=== PATIENT | female | born 1940 | race Caucasian/White ===

== ENCOUNTER 2016-11-15 15:37 | Observation (INO) | payer MEDICARE, OTHER ==
--- NOTE | ~2016-11-15 | DS ---
Discharge Summary [facility] [address] [place]. [address] NAME: BIJU DE ANDA : 44 STATUS : DIS Holly PAT#: [id number] AGE: 76 ADM/REG DATE : 11/15/16 MR#: [id number] REPORT SERV DATE: 11/17/16 DICTATED BY: DATE: REPORT STATUS : Draft TRANSCRIBED BY: MODL DATE: 11/16/16 ADMISSION DATE: 11/15/2016 DISCHARGE DATE: 11/16/2016 DISCHARGE DIAGNOSES: 1. Acute kidney injury. 2. Failure to thrive. 3. Advanced dementia. 4. Metabolic encephalopathy. 5. Gastroesophageal reflux disease. 6. Rheumatoid arthritis. 7. Decubitus ulcers. DISCHARGE MEDICATIONS: Include aspirin 81 mg p.o., daily, folic acid 1 mg p.o. daily, [place] one tab p.o. q.12 hours, Lopressor 12.5 mg b.i.d. p.o., nystatin topical to affected area b.i.d., Prilosec 20 mg p.o. every morning, pravastatin 80 mg p.o. at bedtime, Seroquel 25 mg p.o. at bedtime, Zoloft 50 mg p.o. every morning, prednisone 5 mg p.o. b.i.d., Artificial Tears one drop ophthalmic daily p.r.n. for dry eyes, Tylenol 650 mg p.o. q.4 hours p.r.n. for temp greater than 101, Zofran 4 mg p.o. sublingual q.4 hours p.r.n. for nausea. IMAGING: Includes a portable chest x-ray. This demonstrated mild pulmonary venous hypertension as well as mild interstitial edema. CONSULTING PHYSICIANS: None. HOSPITAL COURSE/PROBLEM LIST: 1. Acute kidney injury. The patient was brought into the emergency department yesterday and was found have a creatinine of 2.66. She has not been eating or drinking anything for the past 7 days. The plan was to measures observation over night. Hydrate her with IV fluids to see if her mental status improved and her creatinine level came down. It is down to 1.74 today. 2. Advanced dementia, failure to thrive is probably related to this advanced dementia. The patient again is not eating or drinking anything for the past 7 days. This has caused acute kidney injury. After discussing further workup and treatment options with the family, the patient's daughter informed us that she would like to pursue hospice care. The patient will be returning to [facility] with [facility]. The patient at this time is still not responding appropriately. She has apparently been agitated with nursing staff; however, she is still confused and not taking any p.o. fluids or intake. She refuses her p.o. medications. I will continue her p.o. medications in case if current condition suddenly improves in hospice care; however, this is not likely. I will discharge the patient again to [facility] with Hospice per patient's daughters request. CLR/MODL Discharge Summary [address] [place]. [address] NAME: BIJU DE ANDA : 44 STATUS : DIS Holly PAT#: [id number] AGE: 76 ADM/REG DATE : 11/15/16 MR#: [id number] REPORT SERV DATE: 11/17/16 DICTATED BY: DATE: REPORT STATUS : Draft TRANSCRIBED BY: MODL DATE: 11/16/16 Beto Montana NP / [id number] CC: Andrea Bashir MD
--- NOTE | ~2016-11-15 | HP ---
History And Physical [place] [id number] [facility] [place]. [address] NAME: BIJU DE ANDA : 44 STATUS : ADM IN [facility]#: [id number] AGE: 76 ADM/REG DATE : 11/15/16 MR#: [id number] REPORT SERV DATE: 11/16/16 DICTATED BY: DATE: REPORT STATUS : Draft TRANSCRIBED BY: MODL DATE: 11/16/16 DATE OF ADMISSION: 11/15/2016 ADDENDUM: CHIEF COMPLAINT: Dehydration and failure to thrive. SOCIAL HISTORY: The patient does not use any type of tobacco products or alcohol, and denies illicit drug use. ALLERGIES: INCLUDE CELEXA, SULFA DRUGS, INFLIXIMAB, LATEX, AND ADHESIVE TAPE. SANDRA/MODL Beto Montana NP / [id number] CC: MD Frank Peñaloza Bradley
--- NOTE | ~2016-11-15 | HP ---
History And Physical [place] [address] [facility] [place]. [address] NAME: BIJU DE ANDA : 44 STATUS : ADM IN [facility]#: [id number] AGE: 76 ADM/REG DATE : 11/15/16 MR#: [id number] REPORT SERV DATE: 11/15/16 DICTATED BY: DATE: REPORT STATUS : Draft TRANSCRIBED BY: MODL DATE: 11/15/16 DATE OF ADMISSION: 11/15/2016 HISTORY OF PRESENT ILLNESS: The patient stopped eating and drinking one week ago according to her daughter either Monday or Monday of last week. She had several "bouts of diarrhea" early in the week, which has since resolved. However, the patient still is not eating or drinking. She has a history of advanced dementia. Her baseline mental status, she is alert and oriented x1. She frequently forgets who her family members are including her daughter and grandson, who are at the bedside at this time. Likely, this failure to thrive is related to her advanced dementia. This has precipitated an acute kidney injury and her creatinine is elevated. MEDICAL HISTORY: Includes rheumatoid arthritis, dementia, systolic heart failure with an EF of 53%, hypertension, GERD, hyperlipidemia, decubitus ulcers in the right thigh and right and left buttocks, degenerative disk disease, and colon polyps. PAST SURGICAL HISTORY: Includes some type of neck surgery. The daughter thinks it might have been a fusion, she is unsure of the levels. She also had a left ankle surgery, right hip replacement, and a lumbar fusion. Again, the daughter is unsure of the levels. She had bilateral total knee replacements, three on the right side and one on the left. FAMILY HISTORY: Her father had an LA at 42 years old. Mother of lung cancer and was a smoker. REVIEW OF SYSTEMS: Unable to obtain. PHYSICAL EXAMINATION: GENERAL: The patient is lethargic; however, does follows commands. She is obese. EYES: Pupils equal, round, and react to light and accommodation. The is patient noncooperative with extraocular movements. No drainage, redness, or swelling noted. ENT: All within normal limits. RESPIRATORY: The patient did have some rhonchi in the anterior lung hunt. CVS: S1 and S2 present. No murmurs, thrills, or bruits. ABDOMEN: The patient does have bowel sounds in all four quadrants. No tenderness noted to palpation. : The patient is incontinent of urine. She does have Depends on. MUSCULOSKELETAL: Unable to assess. SKIN: The patient has stage 2 decubitus ulcer on left buttocks as well as right buttocks. She does have some erythema in her left inner thigh likely due to incontinence. NEURO: The patient is not verbally responding. She did spontaneously open her eyes when we turned her for her assessment. She did, however, squeeze my fingers when asked. She is very weak on both sides with some poor effort. PSYCH: The patient is very somnolent. Her daughter says she is normally quite "feisty." She sometimes ignores her, so she is unsure if this is a mental status change or this is her normal mental state. Her daughter does report that the patient had some hallucination this History And Physical [address] [place]. [address] NAME: BIJU DE ANDA : 44 STATUS : ADM IN [facility]#: [id number] AGE: 76 ADM/REG DATE : 11/15/16 MR#: [id number] REPORT SERV DATE: 11/15/16 DICTATED BY: DATE: REPORT STATUS : Draft TRANSCRIBED BY: [place]ash[place] DATE: 11/15/16 week. MEDICATIONS: 1. Artificial tears one drop daily p.r.n. for dry eyes. 2. Aspirin 81 mg p.o. daily. 3. Folic acid 1 mg p.o. daily. 4. [place] 10/325 mg tablet one tab p.o. q.12 hours p.r.n. for pain. 5. Lopressor 12.5 mg p.o. b.i.d. 6. Nystatin powder to affected area topically b.i.d. 7. Prilosec 20 mg p.o. daily. 8. Pravastatin 80 mg p.o. at bedtime. 9. Prednisone 5 mg p.o. b.i.d. 10.Seroquel 25 mg p.o. at bedtime. 11.Zoloft 50 mg p.o. daily. ASSESSMENT AND PLAN: 1. Acute kidney injury. Admission to the observation status. Hold her IV fluids overnight and monitor creatinine level. We will also hold her losartan and hydrochlorothiazide. 2. Altered mental status. The patient has a history of advanced dementia. She is very somnolent. Hopefully, after the IV fluids, the patient will improve. I am also going to get a portable chest x-ray due to the rhonchi noted in her anterior lung hunt, look for possible infectious cause for the altered mental status; however, we are not going to be aggressive and looking for a cause because the patient is DNR and comfort care, and the family would like to also talk to Palliative Care while they are here, hospice care. 3. Advanced dementia. As mentioned above, we are going to consult hospice before failure to thrive. Hopefully, the patient will improve with IV fluids and wake up, and maybe start eating; however, this is unlikely. 4. Gastroesophageal reflux disease. We will continue her Prilosec. 5. Rheumatoid arthritis. We will continue her prednisone. As mentioned above, the patient is DNR and comfort care. We are admitting to observation status to hopefully turn around this acute kidney injury. CLR/MODL Beto Montana NP / [id number] CC: MD ABDI Peñaloza MD
[2016-11-15 15:22] LABS: BASOPHILS 0.3 %; BASOPHILS ABSOLUTE 0.03 10/3/uL (0.0-0.16); EOSINOPHILS 1.6 %; EOSINOPHILS ABSOLUTE 0.17 10/3/uL (0.0-0.53); ER CBC TAT 0 Hrs 08 Mins; HEMATOCRIT 41.5 % (36.0-48.0); HEMOGLOBIN 14.3 g/dL (12.0-16.0); IMMATURE GRANULOCYTES 1.4 %; IMMATURE GRANULOCYTES ABSOLUTE 0.15 10/3/uL (0.0-0.11); LYMPHOCYTES 33.3 %; LYMPHOCYTES ABSOLUTE 3.57 10/3/uL (0.67-4.30); MANUAL DIFF NO %; MEAN CORPUS HGB CONC 34.5 g/dL (32.0-36.0); MEAN CORPUSCULAR HEMOGLOB 30.4 pg (26.0-34.0); MEAN CORPUSCULAR VOLUME 88.1 fL (80-100); MEAN PLATELET VOLUME 10.2 fL (9.2-13.0); MONOCYTES 7.8 %; MONOCYTES ABSOLUTE 0.84 10/3/uL (0.21-1.20); NEUTROPHILS 55.6 %; NEUTROPHILS ABSOLUTE 5.97 10/3/uL (2.02-8.40); PLATELET COUNT 286 10/3/uL (150-400); RBC DISTRIBUTION WIDTH 13.9 % (12.0-16.0); RED CELL COUNT 4.71 10/6/uL (4.0-5.6); WHITE BLOOD CELLS 10.7 10/3/uL (4.5-10.5)
[2016-11-15 15:36] LABS: A/G RATIO 0.5 (0.7-1.9); ALBUMIN 2.3 G/DL (3.5-5.0); ALKALINE PHOSPHATASE 74 U/L (45-117); CHLORIDE, SERUM 95 MMOL/L (96-112); CO2 (CARBON DIOXIDE) 24 MMOL/L (24-34); GLOBULIN 4.7 G/DL (2.5-4.1); SGPT(ALT) 34 U/L (5-65); SODIUM, SERUM 135 MMOL/L (135-148); TOTAL BILIRUBIN 0.8 MG/DL (0-1.2); TROPONIN I <0.02 NG/ML (<0.05)
[2016-11-15 15:37] LABS: BUN (BLOOD UREA NITROGEN) 32 MG/DL (6-23); CALCIUM, SERUM 7.6 MG/DL (8.5-10.4); CREATININE 2.66 MG/DL (0.55-1.02); GFR AFRICAN AMERICAN 20 ML/MIN (>=60); GFR NON AFRICAN AMERICAN 17 ML/MIN (>=60); GLUCOSE, SERUM 71 MG/DL (60-99); POTASSIUM, SERUM 3.2 MMOL/L (3.5-5.3)
[~2016-11-15 15:37] MED LIST: ACET500CAP PO; BENICAR HCT1 TAB PO; CALCIUM + VIT D PO; CALTRA600D PO; CIMZIA SC; DCN100 PO; FLAG500TAB PO; FLUCON1 PO; FOLIC PO; HALF81 PO; HYZAAR 50/12.51 TAB PO; HYZAAR1 TAB PO; LEVAQUIN750 MG PO; LOP25 PO; MTX2.5 PO; MULTIPLE VIT PO; NEUR300 PO; NORCO1 TA2 PO; NORCO1 TAB PO; P1 PO; P5 PO; PR25 PO; PRAVACHOL80 MG PO; PREM625 PO; PRILO PO; RECLAST IV; REMICADE IV; SEROQUEL25 PO; TEARS PLUS OPH; VITAMIN D PO; VITAMIN D400 UNI1 PO; VITD PO; ZOL100 PO; ZOL50 PO
[2016-11-15 15:38] LABS: SGOT(AST) 26 U/L (5-40)
[2016-11-15] MEDS ORDERED: OYSTER CALCIUM PO (16:32)
[2016-11-15] MEDS ORDERED: [UNRECOGNIZED DRUG - OTHER] PO (16:32)
[2016-11-15] MEDS ORDERED: NYSTATPOW TOP (16:36)
[2016-11-16 09:16] LABS: BUN (BLOOD UREA NITROGEN) 27 MG/DL (6-23); CHLORIDE, SERUM 104 MMOL/L (96-112); CO2 (CARBON DIOXIDE) 17 MMOL/L (24-34); CREATININE 1.74 MG/DL (0.55-1.02); GFR AFRICAN AMERICAN 33 ML/MIN (>=60); GFR NON AFRICAN AMERICAN 28 ML/MIN (>=60); GLUCOSE, SERUM 63 MG/DL (60-99); POTASSIUM, SERUM 2.8 MMOL/L (3.5-5.3); SODIUM, SERUM 137 MMOL/L (135-148)
[2016-11-16 09:17] LABS: CALCIUM, SERUM 6.7 MG/DL (8.5-10.4)
== END 2016-11-16 17:37 ==
LOC: ER 15:37 → 4SO 16:31
PROVIDERS: Hospitalist; Internal Medicine
DX: N17.9 Acute kidney failure, unspecified (principal); R62.7 Adult failure to thrive; F03.90 Unspecified dementia, unspecified severity, without behavioral disturbance, psychotic disturbance, mood disturbance, and anxiety; G93.49 Other encephalopathy; K21.9 Gastro-esophageal reflux disease without esophagitis; M06.9 Rheumatoid arthritis, unspecified; I11.0 Hypertensive heart disease with heart failure; I50.20 Unspecified systolic (congestive) heart failure; E78.5 Hyperlipidemia, unspecified; L89.322 Pressure ulcer of left buttock, stage 2; L89.312 Pressure ulcer of right buttock, stage 2; H91.90 Unspecified hearing loss, unspecified ear; Z79.82 Long term (current) use of aspirin; Z79.899 Other long term (current) drug therapy; Z79.891 Long term (current) use of opiate analgesic; Z88.2 Allergy status to sulfonamides; Z91.040 Latex allergy status; Z88.8 Allergy status to other drugs, medicaments and biological substances; Z86.010 Personal history of colon polyps; Z82.49 Family history of ischemic heart disease and other diseases of the circulatory system; Z80.1 Family history of malignant neoplasm of trachea, bronchus and lung; Z96.653 Presence of artificial knee joint, bilateral; Z90.710 Acquired absence of both cervix and uterus; Z90.49 Acquired absence of other specified parts of digestive tract; Z98.1 Arthrodesis status; Z98.890 Other specified postprocedural states
CPT/HCPCS: 71010; 80048; 80053; 82330; 84484; 85025; 96372; 96374; 96375; 96376; 99285; A9270-GY; G0378; J0610